=== PATIENT | female | born 1940 | race Caucasian/White ===

== ENCOUNTER → 2017-12-18 | Outpatient (CLI) | payer MEDICARE, BC ==
[2017-12-18 16:43] LABS: Basophils % (A) 0 %; Eosinophils # (A) 0.1 k/uL (0-0.7); Eosinophils % (A) 1 %; HCT 32.9 % (34.0-46.0); Lymphocytes # (A) 1.8 k/uL (1.0-4.8); Lymphocytes % (A) 20 %; MCH 29.1 pg (25.0-35.0); MCHC 33.4 g/dL (31.0-37.0); MCV 87.2 fL (80.0-100.0); Mean Platelet Volume 7.2; Monocytes # (A) 0.4 k/uL (0-1.0); Monocytes % (A) 4 %; Neutrophils # (A) 6.6 k/uL (1.3-7.7); Neutrophils % (A) 74 %; Platelet Count 453 k/uL (150-450); RBC 3.78 m/uL (3.80-5.40); RDW 14.4 % (11.5-15.5)
[2017-12-18 16:45] LABS: Appearance,Urine Clear (Clear); Bilirubin,Urine Negative (Negative); Blood,Urine Negative (Negative); Color,Urine Yellow; Glucose,Urine (UA) Negative (Negative); Hyaline Casts,Urine 5 /lpf (0-2); Ketones,Urine Negative (Negative); Leukocyte Esterase,Urine Trace (Negative); Mucus,Urine Rare /hpf; Nitrite,Urine Negative (Negative); PH, Urine 6.5 (5.0-8.0); Protein,Urine Trace (Negative); RBC,Urine 1 /hpf (0-5); Specific Gravity,Urine 1.019 (1.001-1.035); Squamous Epithelial Cell,Urine <1 /hpf (0-4); WBC,Urine 1 /hpf (0-5)
[2017-12-18 17:38] LABS: Albumin 3.9 g/dL (3.5-5.0); Calcium 9.7 mg/dL (8.4-10.2); Potassium 3.6 mmol/L (3.5-5.1); Total Bilirubin 0.4 mg/dL (0.2-1.3); Total Protein 7.3 g/dL (6.3-8.2)
[2017-12-18 17:52] LABS: T4, Free (Free Thyroxine) 1.17 ng/dL (0.78-2.19)
[2017-12-18 20:08] LABS: Erythrocyte Sedimentation Rate 63 mm/hr (0-20)
[2017-12-19 01:58] LABS: Protein, Total 7.1 g/dL (6.2-8.2)
[2017-12-19 02:08] LABS: Vitamin D 25 Hydroxy 20.7 ng/mL (30.0-100.0)
[2017-12-19 14:05] LABS: Albumin 3.94 g/dL (3.80-4.90); Gamma Globulin 1.08 g/dL (0.70-1.50)
== END | disposition home or self-care (01) ==
LOC: LABWHC1 15:42
PROVIDERS: ATTEND Internal Medicine
DX: R25.1 Tremor, unspecified (principal); R53.1 Weakness; R27.0 Ataxia, unspecified
CPT/HCPCS: 36415; 80053; 81001; 82306; 82607; 84165; 84439; 84443; 85025; 85652; 87086

== ENCOUNTER 2017-12-28 13:25 | Day surgery (SDC) | payer MEDICARE, BC ==
[2017-12-26 15:53] VITALS: BMI 23.1
[~2017-12-28 13:25] MED LIST: LACTATED RINGERS 1,000 ML IV SCH; LIDOCAINE 1% 20 ML VIAL (10MG/ML) FOR IV START INTRADERMA PRN
[2017-12-28 13:59] VITALS: TEMP 98.4
[2017-12-28] MEDS ORDERED: PROPOFOL 10 MG/ML 20 ML VIAL IV ONE (14:50)
[2017-12-28 15:29] VITALS: PULSE 98; RESP 14
--- NOTE | 2017-12-28 15:30 | P.PCN ---
Date of Procedure: 12/28/17 Procedure(s) Performed: Procedures: 1. Esophagogastroduodenoscopy and biopsy. 2. Total colonoscopy. Preoperative diagnosis: Iron deficiency anemia and blood in the stools. Postoperative diagnosis: 1. Small sliding hiatal hernia with no obvious esophagitis or complicated reflux disease. 2. Mild gastritis. 3. Multiple biopsies obtained from the duodenum, antrum, cardia and esophagus. 4. Sigmoid diverticulosis with no evidence of acute diverticulitis, strictures, polyps or cancer. 5. No evidence of bleeding noted on these exam. Preparation: HalfLytely prep. Sedation: Was provided by anesthesia. Brief clinical history: The patient is a 77-year-old female who was found to have symptomatic iron deficiency anemia and there was blood in her stools. The patient had prior upper endoscopy and colonoscopy 6-7 years ago. This evaluation is planned to assess for a GI source of bleeding. Procedure: With the patient on her left lateral decubitus position and after informed consent and adequate sedation, I passed the Olympus-GIF 160 video upper endoscope through the cricopharyngeus down the esophagus. GE junction was around 40 cm from the incisors and there was a small sliding hiatal hernia but no obvious esophagitis or complicated reflux disease. The endoscope was then passed into the stomach which was insufflated with air and inspected in detail including the retroflex view in the cardia. There was diffuse mottling and erythema without ulcers or erosions. Pyloric channel, duodenal bulb, post bulbar area and descending duodenum appeared within normal limits. I obtained biopsies from the duodenum, antrum, cardia and esophagus then the endoscope was withdrawn and I proceeded with the colonoscopy. Perianal area did not show any fissures or fistulas. There were no masses felt on digital rectal examination. The Olympus CFQ 160L video colonoscope was then inserted in the rectum in the usual fashion and advanced to the cecum. There were several diverticular orifices seen scattered in the sigmoid but there was no evidence of acute diverticulitis or strictures. No polyps or tumors were seen or any other pathology. I retroflexed the endoscope in the rectum before the endoscope was withdrawn. The patient tolerated the procedure well. Plan: The patient was reassured. Will await biopsy results. Consideration can be given for a capsule endoscopy if she continues to manifest iron deficiency anemia with evidence of GI source of bleeding. I will be happy to see in the office if the symptoms persist.
[2017-12-28 15:55] VITALS: BP 151/78
== END 2017-12-28 16:32 | disposition home or self-care (01) ==
LOC: ORWHC2ENDO 13:25
DX: K29.50 Unspecified chronic gastritis without bleeding (principal); D50.9 Iron deficiency anemia, unspecified; K57.30 Diverticulosis of large intestine without perforation or abscess without bleeding; K21.0 Gastro-esophageal reflux disease with esophagitis; K44.9 Diaphragmatic hernia without obstruction or gangrene; J44.9 Chronic obstructive pulmonary disease, unspecified; I10 Essential (primary) hypertension; Z88.5 Allergy status to narcotic agent; Z88.2 Allergy status to sulfonamides; E78.5 Hyperlipidemia, unspecified; Z87.891 Personal history of nicotine dependence; Z99.81 Dependence on supplemental oxygen; Z79.82 Long term (current) use of aspirin; Z79.899 Other long term (current) drug therapy; Z90.49 Acquired absence of other specified parts of digestive tract; Z90.710 Acquired absence of both cervix and uterus
CPT/HCPCS: 88305; 45378; 43239; J2704

== ENCOUNTER → 2018-01-26 | Outpatient (CLI) | payer MEDICARE, BC ==
--- NOTE | 2018-01-28 10:45 | MR ---
EXAMINATION TYPE: MR lumbar spine wo con DATE OF EXAM: 01/26/2018 COMPARISON: NONE HISTORY: TECHNIQUE: Multiplanar, multisequence images of the lumbar spine were acquired. FINDINGS: On T1 and T2 axial nonfat sat image 30 along the margin of the spleen there is a T1 slightl y heterogenous lesion versus lobulation of the spleen centrally for which further evaluation with ult rasound or CT abdomen are recommended. There is mild pancreatic parenchymal atrophy. Abdominal aorta is within normal limits of size with focal infrarenal ectasia at the level of L3. There is grade 1 retrolisthesis of L5 on S1, likely degenerative in nature. Remainder the lumbar vert ebral bodies maintain normal vertebral body heights and alignment. Bone marrow signal is unremarkable other than degenerative endplate changes. Right perineural cyst is incidentally noted of S2. L1-L2: There is a small left paracentral disc herniation superimposed upon a broad-based disc bulge w ithout resultant significant spinal canal stenosis nor neural foraminal narrowing. L2-L3: There is a broad-based disc bulge and mild facet arthropathy with ligamentum flavum buckling r esulting in minimal bilateral neural foraminal narrowing. No spinal canal stenosis. L3-L4: There is a broad-based disc bulge, facet arthropathy, and marked ligamentum flavum buckling re sulting in mild bilateral neural foraminal narrowing and mild spinal canal stenosis. L4-L5: There is a broad-based disc bulge, facet arthropathy and ligamentum flavum buckling that narro w the spinal canal and both anterior posterior and transverse dimensions mildly. Mild bilateral neura l foraminal narrowing is also seen. L5-S1: There is a broad-based disc bulge and facet arthropathy with ligamentum flavum buckling result ing in mild to moderate left neural foraminal narrowing and mild right neural foraminal narrowing. No significant spinal canal stenosis. IMPRESSION: 1. Small left paracentral disc herniation at L1-L2 without spinal canal stenosis or neural foraminal narrowing. 2. Lobulated left upper quadrant lesion adjacent to the splenic could represent a splenic lobulation or mass. Further evaluation with ultrasound or CT abdomen are recommended. 3. Moderate multilevel degenerative disc disease of the lumbar spine resulting in mild spinal canal s tenosis at L3-L4 and L4-L5. Variable degrees of neural foraminal narrowing are described above. 4. Minimal retrolisthesis of L5 on S1, likely degenerative in nature.
== END | disposition home or self-care (01) ==
LOC: RADMRIMAIN 18:14
PROVIDERS: ATTEND Psychiatry & Neurology Neurology
DX: M48.061 Spinal stenosis, lumbar region without neurogenic claudication (principal); M99.73 Connective tissue and disc stenosis of intervertebral foramina of lumbar region; M51.06 Intervertebral disc disorders with myelopathy, lumbar region; M43.17 Spondylolisthesis, lumbosacral region
CPT/HCPCS: 72148

== ENCOUNTER → 2018-02-09 | Outpatient (CLI) | payer MEDICARE, BC ==
--- NOTE | 2018-02-09 09:39 | US ---
EXAMINATION TYPE: US abdomen complete DATE OF EXAM: 02/09/2018 COMPARISON: MRI 2018 CLINICAL HISTORY: R93.7 Lobulated LUQ lesion. Back pain x 3 weeks, LUQ lesion seen on recent MRI EXAM MEASUREMENTS: Liver Length: 13.7 cm Gallbladder Wall: surgically absent CBD: 1.0 cm Spleen: 9.0 cm Right Kidney: 9.0 x 3.9 x 4.2 cm Left Kidney: 9.1 x 4.1 x 4.7 cm Pancreas: visualized portions appear hyperechoic Liver: mildly heterogeneous Gallbladder: surgically absent Evidence for sonographic Issa's sign: no CBD: Postsurgically dilated at 1.0cm Spleen: Isoechoic lobulation centrally, correlates to area seen on recent MRI Right Kidney: fullness of renal pelvis Left Kidney: 1.6 x 1.5 x 1.4cm hypoechoic area mid pole, 0.3cm echogenic focus superior pole Upper IVC: wnl Abd Aorta: focal area of saccular ectasia mid aorta measuring 2.2 cm in anterior posterior dimension and spanning 3.2 cm in length. IMPRESSION: 1. Isoechoic lobulation of the spleen centrally correlating with the recent finding seen on MRI. No s uspicious mass. 2. Redemonstration of focal saccular ectasia within the mid abdominal aorta, not meeting size criteri a for aneurysm (2.2 cm). 3. 1.6 cm left renal lesion with no correlate on the prior MRI. Therefore this may represent a promin ent column of Samy. Follow-up ultrasound is recommended in 6 months.
== END | disposition home or self-care (01) ==
LOC: RADUSWWP 07:25
PROVIDERS: ATTEND Psychiatry & Neurology Neurology
DX: N28.9 Disorder of kidney and ureter, unspecified (principal); I77.811 Abdominal aortic ectasia; D73.89 Other diseases of spleen
CPT/HCPCS: 76700

== ENCOUNTER → 2018-02-21 | Outpatient (CLI) | payer MEDICARE, BC ==
--- NOTE | 2018-02-21 08:55 | MR ---
MRI CERVICAL SPINE: CLINICAL HISTORY: Myelopathy, imbalance, CORD compression, hyperreflexia, and leg weakness all per or murphy. Headache with dizziness for 5 months per patient TECHNIQUE: Multiplanar, multisequence imaging of the cervical spine is performed without IV contrast. Demyelinating disease protocol with additional PD sagittal sequence COMPARISON: None. FINDINGS: Sagittal images of the cervical spine show the craniocervical junction to appear within nor mal limits. The cervical and upper thoracic spinal cord is normal in course, caliber, and signal. V ertebral alignment is anatomic. The vertebral body heights are normal. There is moderate multilevel disc space narrowing with mild to moderate multilevel spurring C3-C4 through C6-C7 levels in the cerv ical spine. There is spurring C7-T1 level. Multilevel posterior disc herniations at spur disc complex es are effacing anterior thecal sac on sagittal images with sparing of C2-C3 level. The bone marrow signal intensity is within normal limits. Axial images show the C2-C3 level to appear within normal limits. Axial images at the C3-C4 level show broad-based right paracentral disc protrusion effacing anterolat eral thecal sac with marginal spurring causing fairly advanced right-sided neural foraminal narrowing on axial image 38. Left-sided neural foramen is patent. Axial images at C4-C5 level show broad-based right paracentral/foraminal spur disc complex effacing a nterolateral thecal sac and causing moderate to advanced right-sided neural foraminal narrowing. Ther e is mild to moderate left-sided neural foraminal narrowing due to smaller spur disc complex. Axial images at C5-C6 level show broad-based posterior spur disc complex effacing anterior thecal sac and causing moderate to advanced right greater than left bilateral neural foraminal narrowing. Axial images at C6-C7 level show broad-based right paracentral disc protrusion effacing anterior thec al sac and causing mild bilateral neural foraminal narrowing. Axial images at C7-T1 level show broad-based left paracentral disc protrusion effacing anterolateral thecal sac and causing mild left-sided neural foraminal narrowing. Right-sided neural foramen is shields nt. IMPRESSION: Multilevel degenerative changes in the cervical spine as detailed above.
== END | disposition home or self-care (01) ==
LOC: RADMRIMAIN 08:05
PROVIDERS: ATTEND Psychiatry & Neurology Neurology
DX: M47.12 Other spondylosis with myelopathy, cervical region (principal)
CPT/HCPCS: 72141

== ENCOUNTER → 2018-03-01 | Outpatient (CLI) | payer MEDICARE, BC | END | disposition home or self-care (01) | LOC: RADECHMAIN 11:38 | PROVIDERS: ATTEND Psychiatry & Neurology Neurology | DX: R00.1 Bradycardia, unspecified (principal); R00.0 Tachycardia, unspecified; R42 Dizziness and giddiness | CPT/HCPCS: 93225; 93226 ==

== ENCOUNTER → 2018-03-19 | Outpatient (CLI) | payer MEDICARE, BC ==
--- NOTE | 2018-03-20 10:02 | MM ---
Reason for exam: screening (asymptomatic). Last mammogram was performed 14 years and 1 month ago. History: Patient is postmenopausal. Family history of breast cancer in mother at age 85. Physical Findings: A clinical breast exam by your physician is recommended on an annual basis and results should be correlated with mammographic findings. MG 3D Screening Mammo W/Cad Bilateral CC and MLO view(s) were taken. No prior studies available for comparison. The breast tissue is heterogeneously dense. This may lower the sensitivity of mammography. Finding: There are typically benign vascular, round calcifications in both breasts. There is no discrete abnormality. ASSESSMENT: Benign, BI-RAD 2 RECOMMENDATION: Routine screening mammogram of both breasts in 1 year.
== END | disposition home or self-care (01) ==
LOC: RADMAMWWP 16:25
PROVIDERS: ATTEND Internal Medicine
DX: Z12.31 Encounter for screening mammogram for malignant neoplasm of breast (principal)
CPT/HCPCS: 77063; 77067

== ENCOUNTER → 2018-05-09 | Outpatient (CLI) | payer MEDICARE, BC ==
--- NOTE | 2018-05-09 17:53 | XR ---
EXAMINATION TYPE: XR thoracic spine complete DATE OF EXAM: 05/09/2018 COMPARISON: None HISTORY: Thoracic pain since fall TECHNIQUE: Thoracic spine is examined in 3 views. FINDINGS: There are 12 thoracic-type tubal bodies. Pedicles are intact. Degenerative disc changes are noted, greatest at T5-6 and T7-8. Vertebral body alignment appears normal on the sagittal plane. The re is a subtle scoliosis within the mid thoracic spine in the frontal projection. IMPRESSION: 1. Degenerative disc changes greatest in the mid thoracic spine. Mild scoliosis is present.
== END | disposition home or self-care (01) ==
LOC: RADXRMAIN 14:35
PROVIDERS: ATTEND Psychiatry & Neurology Neurology
DX: M47.814 Spondylosis without myelopathy or radiculopathy, thoracic region (principal); M41.9 Scoliosis, unspecified
CPT/HCPCS: 72072

== ENCOUNTER 2020-01-20 10:03 | Inpatient (IN) | payer MEDICARE, BC ==
[2020-01-20] MEDS ORDERED: ACETAMINOPHEN TAB 500 MG TAB PO STA (10:23)
[2020-01-20] MEDS ORDERED: ALBUTEROL HFA INHALER INHALATION STA (10:25)
--- NOTE | 2020-01-20 10:35 | ED ---
General Adult HPI - General Chief complaint: Shortness of Breath Stated complaint: SOB Time Seen by Provider: 01/20/20 10:13 Source: patient, RN notes reviewed Mode of arrival: ambulatory Limitations: no limitations - History of Present Illness Initial comments: 79-year-old female with a past medical history of COPD on 2 L at night, hypertension, GERD presents to the emergency department for a chief complaint of cough. Patient has cough for the past 2 weeks. Patient has a been on 2 different antibiotics for this. Patient states cough is worsening. States it is productive with green sputum. States that she is short of breath and her shortness of breath is worsening. She was seen by her doctor today and they sent her to the emergency department due to concerns for Covid. Patient has no other complaints at this time including chest pain, abdominal pain, nausea or vomiting, headache, or visual changes. - Related Data Home Medications Medication Instructions Recorded Confirmed Albuterol Sulfate [Proair Hfa] 1 - 2 puff INHALATION Q6HR PRN 12/26/17 12/26/17 Aspirin 81 mg PO DAILY 12/26/17 12/26/17 Atorvastatin [Lipitor] 10 mg PO DAILY 12/26/17 12/26/17 Budesonide/Formoterol Fumarate 2 puff INHALATION BID 12/26/17 12/26/17 [Symbicort 160-4.5 Mcg Inhaler] Chlorthalidone 25 mg PO Q2D 12/26/17 12/26/17 Ergocalciferol [Vitamin D2] 50,000 unit PO TH 12/26/17 12/26/17 Ipratropium-Albuterol Nebulize 3 ml INHALATION BID 12/26/17 12/26/17 [Duoneb 0.5 mg-3 mg/3 ml Soln] Losartan Potassium 50 mg PO QAM 12/26/17 12/26/17 Allergies Allergy/AdvReac Type Severity Reaction Status Date / Time codeine AdvReac Nausea & Verified 01/20/20 10:07 Vomiting Sulfa (Sulfonamide AdvReac Nausea & Verified 01/20/20 10:07 Antibiotics) Vomiting Review of Systems ROS Statement: Those systems with pertinent positive or pertinent negative responses have been documented in the HPI. ROS Other: All systems not noted in ROS Statement are negative. Past Medical History Past Medical History: COPD, GERD/Reflux, Hypertension, Skin Disorder Additional Past Medical History / Comment(s): prednisone-November 2017,sob and dizziness,generalized weakness,recent falls,uses O2 @ 2 L NC,skin rash, within last 6 mos 2 hospitaliztions in [place] for respiratory/elevated b/p admissions, hx bronchitis,elevated blood sugar History of Any Multi-Drug Resistant Organisms: None Reported Past Surgical History: Appendectomy, Cholecystectomy, Hysterectomy Additional Past Surgical History / Comment(s): hemorrhoidectomy Past Anesthesia/Blood Transfusion Reactions: No Reported Reaction, Motion Sickness Additional Past Anesthesia/Blood Transfusion Reaction / Comment(s): took 3 days to ambulate after spinal given Past Psychological History: No Psychological Hx Reported Smoking Status: Former smoker Past Alcohol Use History: Occasional Past Drug Use History: None Reported - Past Family History Mother Family Medical History: No Reported History Father Family Medical History: Cancer Additional Family Medical History / Comment(s): lung General Exam Limitations: no limitations General appearance: alert, in no apparent distress Head exam: Present: atraumatic, normocephalic, normal inspection Eye exam: Present: normal appearance, PERRL, EOMI. Absent: scleral icterus, conjunctival injection, periorbital swelling ENT exam: Present: normal exam, mucous membranes moist Neck exam: Present: normal inspection, full ROM. Absent: tenderness, meningismus, lymphadenopathy Respiratory exam: Present: wheezes, accessory muscle use, decreased breath sounds, prolonged expiratory. Absent: respiratory distress, rales, rhonchi, stridor Cardiovascular Exam: Present: regular rate, normal rhythm, normal heart sounds. Absent: systolic murmur, diastolic murmur, rubs, gallop, clicks GI/Abdominal exam: Present: soft, normal bowel sounds. Absent: distended, tenderness, guarding, rebound, rigid Neurological exam: Present: alert Psychiatric exam: Present: normal affect, normal mood Course Vital Signs 01/20/20 01/20/20 10:07 11:10 Temperature 99.3 F 101.9 F H Pulse Rate 124 H 108 H Respiratory 24 20 Rate Blood Pressure 125/98 150/85 O2 Sat by Pulse 94 L 96 Oximetry Medical Decision Making - Medical Decision Making Vitals are stable. However patient is febrile 101.9. Heart rate is improving with Tylenol. Patient is on 2 L nasal cannula and is satting at 96%. She does require 2 L at night given her history of COPD. CBC CMP unremarkable. There is mild hyponatremia of 132, patient given normal saline for gentle rehydration. CRP is elevated 168. D-dimer is elevated 1.30 which was ordered for Covid prognostic testing however CT and she will be ordered to rule out PE. Lungs are very diminished and wheezy. X-ray did show a mild patchy density right lower lobe that may reflect a developing pneumonia. This is clinically correlated given patient's fever and productive cough. Patient will be admitted for COPD exacerbation, pneumonia, rule out Covid. She was given a dose of antibiotics here in the emergency room. Started on steroids. Patient will be kept on albuterol inhaler until Covid testing results. Dr. Vidal spoke with Dr. Nowak about this patient who accepts the admission. CT chest angio for PE is currently pending. - Lab Data Result diagrams: 01/20/20 10:30 01/20/20 10:30 Lab Results 01/20/20 01/20/20 01/20/20 Range/Units 10:30 10:30 10:30 WBC 9.6 (3.8-10.6) k/uL RBC 4.41 (3.80-5.40) m/uL Hgb 13.3 (11.4-16.0) gm/dL Hct 39.0 (34.0-46.0) % MCV 88.4 (80.0-100.0) fL MCH 30.3 (25.0-35.0) pg MCHC 34.2 (31.0-37.0) g/dL RDW 13.3 (11.5-15.5) % Plt Count 312 (150-450) k/uL Neutrophils % 76 % Lymphocytes % 15 % Monocytes % 4 % Eosinophils % 4 % Basophils % 0 % Neutrophils # 7.3 (1.3-7.7) k/uL Lymphocytes # 1.4 (1.0-4.8) k/uL Monocytes # 0.4 (0-1.0) k/uL Eosinophils # 0.4 (0-0.7) k/uL Basophils # 0.0 (0-0.2) k/uL PT 9.4 (9.0-12.0) sec INR 0.9 (<1.2) APTT 20.2 L (22.0-30.0) sec D-Dimer 1.30 H (<0.60) mg/L FEU Sodium 132 L (137-145) mmol/L Potassium 4.7 (3.5-5.1) mmol/L Chloride 102 (98-107) mmol/L Carbon Dioxide 19 L (22-30) mmol/L Anion Gap 11 mmol/L BUN 12 (7-17) mg/dL Creatinine 0.98 (0.52-1.04) mg/dL Est GFR (CKD-EPI)AfAm 64 (>60 ml/min/1.73 sqM) Est GFR (CKD-EPI)NonAf 55 (>60 ml/min/1.73 sqM) Glucose 93 (74-99) mg/dL Plasma Lactic Acid Donnie (0.7-2.0) mmol/L Calcium 9.2 (8.4-10.2) mg/dL Magnesium 2.2 (1.6-2.3) mg/dL Total Bilirubin 0.6 (0.2-1.3) mg/dL AST 29 (14-36) U/L ALT 18 (4-34) U/L Alkaline Phosphatase 124 (38-126) U/L Lactate Dehydrogenase 530 (313-618) U/L C-Reactive Protein 168.0 H (<10.0) mg/L Total Protein 7.4 (6.3-8.2) g/dL Albumin 3.9 (3.5-5.0) g/dL 01/20/20 Range/Units 10:30 WBC (3.8-10.6) k/uL RBC (3.80-5.40) m/uL Hgb (11.4-16.0) gm/dL Hct (34.0-46.0) % MCV (80.0-100.0) fL MCH (25.0-35.0) pg MCHC (31.0-37.0) g/dL RDW (11.5-15.5) % Plt Count (150-450) k/uL Neutrophils % % Lymphocytes % % Monocytes % % Eosinophils % % Basophils % % Neutrophils # (1.3-7.7) k/uL Lymphocytes # (1.0-4.8) k/uL Monocytes # (0-1.0) k/uL Eosinophils # (0-0.7) k/uL Basophils # (0-0.2) k/uL PT (9.0-12.0) sec INR (<1.2) APTT (22.0-30.0) sec D-Dimer (<0.60) mg/L FEU Sodium (137-145) mmol/L Potassium (3.5-5.1) mmol/L Chloride (98-107) mmol/L Carbon Dioxide (22-30) mmol/L Anion Gap mmol/L BUN (7-17) mg/dL Creatinine (0.52-1.04) mg/dL Est GFR (CKD-EPI)AfAm (>60 ml/min/1.73 sqM) Est GFR (CKD-EPI)NonAf (>60 ml/min/1.73 sqM) Glucose (74-99) mg/dL Plasma Lactic Acid Donnie 1.7 (0.7-2.0) mmol/L Calcium (8.4-10.2) mg/dL Magnesium (1.6-2.3) mg/dL Total Bilirubin (0.2-1.3) mg/dL AST (14-36) U/L ALT (4-34) U/L Alkaline Phosphatase (38-126) U/L Lactate Dehydrogenase (313-618) U/L C-Reactive Protein (<10.0) mg/L Total Protein (6.3-8.2) g/dL Albumin (3.5-5.0) g/dL Disposition Clinical Impression: COPD exacerbation, Cough, Fever Disposition: ADMITTED IP TO THIS HOSP Condition: Fair Referrals: Ever Roach MD [Primary Care Provider] - 1-2 days Time of Disposition: 12:19
[2020-01-20 10:57] LABS: Basophils % (A) 0 %; Eosinophils # (A) 0.4 k/uL (0-0.7); Eosinophils % (A) 4 %; HGB 13.3 gm/dL (11.4-16.0); Lymphocytes # (A) 1.4 k/uL (1.0-4.8); Lymphocytes % (A) 15 %; MCH 30.3 pg (25.0-35.0); MCHC 34.2 g/dL (31.0-37.0); MCV 88.4 fL (80.0-100.0); Mean Platelet Volume 7.2; Monocytes # (A) 0.4 k/uL (0-1.0); Monocytes % (A) 4 %; Neutrophils # (A) 7.3 k/uL (1.3-7.7); Neutrophils % (A) 76 %; Platelet Count 312 k/uL (150-450); RBC 4.41 m/uL (3.80-5.40); RDW 13.3 % (11.5-15.5); WBC 9.6 k/uL (3.8-10.6)
[2020-01-20 11:04] LABS: Albumin 3.9 g/dL (3.5-5.0); Calcium 9.2 mg/dL (8.4-10.2); Magnesium 2.2 mg/dL (1.6-2.3); Potassium 4.7 mmol/L (3.5-5.1); Total Bilirubin 0.6 mg/dL (0.2-1.3); Total Protein 7.4 g/dL (6.3-8.2)
[2020-01-20 11:14] LABS: INR 0.9 (<1.2); Partial Thromboplastin Time 20.2 sec (22.0-30.0); Prothrombin Time 9.4 sec (9.0-12.0)
--- NOTE | 2020-01-20 11:14 | XR ---
EXAMINATION TYPE: XR chest 1V portable DATE OF EXAM: 01/20/2020 HISTORY: Shortness of breath. COMPARISON: June 11, 2019 TECHNIQUE: Single view of the chest is submitted. FINDINGS: Demonstrated are scattered senescent parenchymal change. Mild patchy density right lower lobe may reflect developing pneumonia. Correlate clinically and progr ess studies are recommended. The heart is stable. Hilar and mediastinal structures are within normal limits. Degenerative changes are seen of the dorsal spine. IMPRESSION: 1. Mild patchy density right lower lobe may reflect developing pneumonia. Correlate clinically and p rogress studies are recommended.
[2020-01-20 11:22] LABS: D-Dimer 1.3 mg/L FEU (<0.60)
[2020-01-20] MEDS ORDERED: AZITHROMYCIN 500 MG in SODIUM CHLORIDE 0.9% 250 ML IVPB STA (11:44)
[2020-01-20] MEDS ORDERED: cefTRIAXone IN SWFI 1,000 MG/10 ML SYRINGE IVP STA (11:44)
--- NOTE | 2020-01-20 12:42 | CT ---
EXAMINATION TYPE: CT chest angio for PE DATE OF EXAM: 01/20/2020 COMPARISON: None HISTORY: SOB, cough, fever CT DLP: 279 mGycm CONTRAST: CT chest with contrast and 3D reconstruction with MIP imaging is performed with IV Contrast, patient injected with 100 mL of Isovue 370. Contrast-enhanced CT of the chest was performed through the course of the pulmonary arteries with nina g and mediastinal window settings submitted. 3D reconstruction with MIP imaging was also performed. PULMONARY ARTERIES: The pulmonary arteries and their major tributaries are patent. I do not see agustina dence for sizable filling defect to suggest pulmonary embolic process. LUNGS: Severe paracentral emphysema. The lungs are clear and free of infiltrate. No evidence for atel ectasis. No pulmonary nodule or mass is detected. No pleural effusion. MEDIASTINUM: Thoracic aorta is of normal caliber,however, evaluation is limited given timing of the contrast bolus. If there is concern for thoracic aortic pathology consider YARY. Correlate clinicall y . The heart is not enlarged. No evidence for mediastinal mass. No mediastinal lymph nodes greater than 1cm. HILAR STRUCTURES: No evidence for mass. No hilar lymph nodes greater than 1 cm. UPPER ABDOMEN: No significant abnormality is seen. IMPRESSION: 1. No evidence for Pulmonary embolism at this time.
[2020-01-20] MEDS: ALBUTEROL HFA INHALER INHALATION SCH ×2 (15:14→18:58)
[2020-01-20] MEDS ORDERED: HYDROcodone/APAP 5-325MG 1 EACH TAB PO PRN (16:07)
[2020-01-20] MEDS ORDERED: methylPREDNISolone SOD SUCCI 125 MG/2 ML VIAL IV STA (16:09)
[2020-01-20 16:20] LABS: Ferritin 782.9 ng/mL (10.0-291.0)
[2020-01-20 16:59] LABS: Glucose,Whole Blood 141 mg/dL (75-99)
[2020-01-20] MEDS: methylPREDNISolone SOD SUCCI 125 MG/2 ML VIAL IV SCH ×2 (17:08→22:59)
[2020-01-20] MEDS: INSULIN ASPART (NovoLOG) 100 UNIT/ML VIAL SQ SCH ×2 (17:22→20:21)
[2020-01-20 20:04] LABS: Glucose,Whole Blood 135 mg/dL (75-99)
[2020-01-21] MEDS: ALBUTEROL HFA INHALER INHALATION SCH ×3 (00:22→07:47)
[2020-01-21] MEDS: methylPREDNISolone SOD SUCCI 125 MG/2 ML VIAL IV SCH ×4 (05:13→23:23)
[2020-01-21 06:55] LABS: Glucose,Whole Blood 152 mg/dL (75-99)
[2020-01-21 07:32] LABS: Basophils % (A) 0 %; Eosinophils % (A) 0 %; HCT 38.1 % (34.0-46.0); HGB 12.5 gm/dL (11.4-16.0); Lymphocytes # (A) 0.7 k/uL (1.0-4.8); Lymphocytes % (A) 15 %; MCH 29.1 pg (25.0-35.0); MCHC 32.8 g/dL (31.0-37.0); MCV 88.9 fL (80.0-100.0); Mean Platelet Volume 7.8; Monocytes # (A) 0.1 k/uL (0-1.0); Monocytes % (A) 1 %; Neutrophils # (A) 3.9 k/uL (1.3-7.7); Neutrophils % (A) 83 %; Platelet Count 298 k/uL (150-450); RBC 4.29 m/uL (3.80-5.40); RDW 13.3 % (11.5-15.5); WBC 4.8 k/uL (3.8-10.6)
[2020-01-21] MEDS: HEPARIN SODIUM,PORCINE 5,000 UNIT/ML 1 ML VIAL SQ SCH ×3 (07:37→23:24)
[2020-01-21] MEDS: INSULIN ASPART (NovoLOG) 100 UNIT/ML VIAL SQ SCH ×4 (07:37→20:44)
[2020-01-21] MEDS: AZITHROMYCIN 500 MG TAB PO SCH (07:37)
[2020-01-21 07:43] LABS: Calcium 9.2 mg/dL (8.4-10.2); Potassium 4.5 mmol/L (3.5-5.1)
[2020-01-21] MEDS: SYMBICORT 160-4.5 MCG INHALER INHALATION SCH ×2 (07:47→19:15)
[2020-01-21] MEDS ORDERED: IPRATROPIUM-ALBUTEROL 3 ML NEB INHALATION PRN (11:05)
[2020-01-21] MEDS: IPRATROPIUM-ALBUTEROL 3 ML NEB INHALATION SCH ×3 (11:16→19:15)
[2020-01-21 12:00] LABS: Glucose,Whole Blood 141 mg/dL (75-99)
--- NOTE | 2020-01-21 13:26 | P.CNPUL ---
History of Present Illness Consult date: 01/21/20 Requesting physician: Tolu Nowak Reason for consult: dyspnea, COPD Chief complaint: Shortness of breath, cough, congestion History of present illness: This is a very pleasant 79-year-old female patient who follows with Dr. Roach as her primary care provider. She has a history of hypertension, hyperlipidemia, chronic obstructive pulmonary disease, oxygen dependent mainly at night on 2 L/m per nasal cannula. She is a prior history of chronic tobacco dependence. Recently she had been having issues with her COPD exacerbations and was treated in our office on 2 separate occasions with steroids and antibiotics without much improvement. She presented here to the emergency room yesterday with ongoing symptoms. CT angiogram revealed no evidence of pulmonary embolism. Lungs showed severe paracentral emphysema. Lungs were clear and free of infiltrates. No evidence of atelectasis. No pulmonary nodules or masses. No pleural effusions. She is seen today in consultation on the regular medical floor. She is awake and alert in no acute distress. She did present with a T- max of 101.9. Currently afebrile. Blood culture reveals no growth. Sputum culture pending. White count 4.8. Hemoglobin 12.5. Sodium 134. Potassium 4.5. Bicarb 19. Creatinine 0.91. Fonseca virus not detected. She been initiated on Symbicort, albuterol, IV Solu-Medrol. Empiric antibiotics in the form of ceftriaxone and azithromycin. Review of Systems REVIEW OF SYSTEMS: CONSTITUTIONAL: Denies any recent significant weight loss or weight gain. EYES: Denies change in vision. EARS, NOSE, MOUTH, THROAT: Denies headaches, denies sore throat. CARDIOVASCULAR: Denies chest pain, palpitations or syncopal episodes. RESPIRATORY: As needed for shortness of breath, cough, congestion no hemoptysis. GASTROINTESTINAL: Denies change in appetite, denies abdominal pain GENITOURINARY: Denies hematuria, denies infections. MUSKULOSKELETAL: Denies pain, denies swelling. INTEGUMENTARY: Denies rash, denies eczema. NEUROLOGICAL: Denies recent memory loss, no recent seizure activity. PSYCHIATRIC: Denies anxiety, denies depression. HEMATOLOGIC/LYMPHATIC: Denies anemia, denies enlarged lymph nodes. Past Medical History Past Medical History: COPD, GERD/Reflux, Hypertension Additional Past Medical History / Comment(s): prednisone-November 2017,sob and dizziness,generalized weakness,recent falls,uses O2 @ 2 L NC,skin rash, within last 6 mos 2 hospitaliztions in [place] for respiratory/elevated b/p admissions, hx bronchitis,elevated blood sugar History of Any Multi-Drug Resistant Organisms: None Reported Past Surgical History: Appendectomy, Cholecystectomy, Hysterectomy Additional Past Surgical History / Comment(s): hemorrhoidectomy Past Anesthesia/Blood Transfusion Reactions: No Reported Reaction, Motion Sick ness Additional Past Anesthesia/Blood Transfusion Reaction / Comment(s): took 3 days to ambulate after spinal given Smoking Status: Former smoker - Past Family History Mother Family Medical History: No Reported History Father Family Medical History: Cancer Additional Family Medical History / Comment(s): lung Medications and Allergies Home Medications Medication Instructions Recorded Confirmed Type Albuterol Sulfate [Proair Hfa] 2 puff INHALATION RT-QID PRN 12/26/17 01/20/20 History Budesonide/Formoterol Fumarate 2 puff INHALATION RT-QID 12/26/17 01/20/20 History [Symbicort 160-4.5 Mcg Inhaler] Ipratropium-Albuterol Nebulize 3 ml INHALATION RT-QID 12/26/17 01/20/20 History [Duoneb 0.5 mg-3 mg/3 ml Soln] Cholecalciferol (Vitamin D3) 50 mcg PO DAILY 01/20/20 01/20/20 History [Vitamin D3] Allergies Allergy/AdvReac Type Severity Reaction Status Date / Time codeine AdvReac Nausea & Verified 01/20/20 13:23 Vomiting Sulfa (Sulfonamide AdvReac Nausea & Verified 01/20/20 13:23 Antibiotics) Vomiting Physical Exam Vitals: Vital Signs Temp Pulse Pulse Resp BP BP Pulse Ox 01/21/20 11:34 96 01/21/20 11:18 102 H 01/21/20 07:37 18 01/21/20 07:00 97.7 F 99 18 145/79 95 01/21/20 00:47 97.8 F 89 18 142/79 91 L 01/20/20 19:25 98.4 F 72 18 157/80 98 01/20/20 16:04 98.3 F 92 18 152/82 97 01/20/20 16:00 97.4 F L 99 19 154/68 93 L 01/20/20 14:00 104 H 20 141/77 96 Intake and Output 01/20/20 01/21/20 01/21/20 22:59 06:59 14:59 Output Total 0 Balance 0 Output: Urine 0 Other: Voiding Method Bedside Commode # Voids 2 2 Weight 68.946 kg GENERAL EXAM: Alert, active, pleasant 79-year-old female patient, on 3 L nasal cannula, comfortable in no apparent distress. HEAD: Normocephalic. EYES: Normal reaction of pupils, equal size. NOSE: Clear with pink turbinates. THROAT: No erythema or exudates. NECK: No masses, no JVD. CHEST: No chest wall deformity. LUNGS: Equal air entry with no crackles, wheeze, rhonchi or dullness. Diminished. CVS: S1 and S2 normal with no audible murmur, regular rhythm. ABDOMEN: No hepatosplenomegaly, normal bowel sounds, no guarding or rigidity. SPINE: No scoliosis or deformity SKIN: No rashes CENTRAL NERVOUS SYSTEM: No focal deficits, tone is normal in all 4 extremities. EXTREMITIES: There is no peripheral edema. No clubbing, no cyanosis. Peripheral pulses are intact. Results - Laboratory Findings CBC and BMP: 01/21/20 06:38 01/21/20 06:38 PT/INR, D-dimer PT 9.4 sec (9.0-12.0) 01/20/20 10:30 INR 0.9 (<1.2) 01/20/20 10:30 D-Dimer 1.30 mg/L FEU (<0.60) H 01/20/20 10:30 Abnormal lab findings: Abnormal Labs 01/20/20 01/20/20 01/20/20 10:30 10:30 16:57 Lymphocytes # APTT 20.2 L D-Dimer 1.30 H Sodium 132 L Carbon Dioxide 19 L BUN Glucose POC Glucose (mg/dL) 141 H Ferritin 782.9 H C-Reactive Protein 168.0 H 01/20/20 01/21/20 01/21/20 20:03 06:38 06:38 Lymphocytes # 0.7 L APTT D-Dimer Sodium 134 L Carbon Dioxide 19 L BUN 18 H Glucose 148 H POC Glucose (mg/dL) 135 H Ferritin C-Reactive Protein 01/21/20 01/21/20 06:53 11:59 Lymphocytes # APTT D-Dimer Sodium Carbon Dioxide BUN Glucose POC Glucose (mg/dL) 152 H 141 H Ferritin C-Reactive Protein - Diagnostic Findings Chest x-ray: image reviewed CT scan - chest: image reviewed Assessment and Plan Assessment: 1 Acute exacerbation of chronic obstructive pulmonary disease, complicated by purulent tracheobronchitis. Failed outpatient treatment. No evidence of pneumonia. 2 Acute on chronic hypoxic respiratory failure secondary to above. 3 History of chronic tobacco dependence. 4 Hyperlipidemia 5 Hypertension 6 Gastroesophageal reflux disease Plan The patient was seen and evaluated by Dr. Roach CAT scan, chest x-ray and labs reviewed No clear evidence of pneumonia Continue empiric antibiotics Continue IV Solu-Medrol Continue bronchodilators Obtain sputum sample if possible Titrate down the FiO2 as tolerated Increase her activity as tolerated We will continue to follow and make further recommendations based on her clinical status I, the cosigning physician, performed a history & physical examination of the patient. Lungs sounds are clear, diminished. Maintaining good O2 saturations in the 90s on 3 L/m per nasal cannula. I discussed the assessment and plan of care with my nurse practitioner, Violet Jauregui. I attest to the above note as dictated by her. Time with Patient: Greater than 30
[2020-01-21 17:09] LABS: Glucose,Whole Blood 145 mg/dL (75-99)
--- NOTE | 2020-01-21 20:19 | P.HPIM ---
History of Present Illness H&P Date: 01/20/20 Chief Complaint: ESSENCE Patient is a 79-year-old female with a known history of COPD on oxygen at 2 L in the night, hypertension, GERD came to ER with the complaints of cough and worsening shortness of breath for the past 2 weeks. Patient was on 2 different antibiotics as an outpatient but without much improvement. Patient cough has been worsening. Sometimes productive with green-colored sputum.. Patient was seen by her doctor today and sent to ER due to concern for COVID-19 virus infection. Otherwise patient denied any complaints of chest pain. No nausea vomiting or diarrhea. No abdominal pain. No dizziness or lightheadedness. EKG showed sinus tachycardia Chest x-ray showed mild patchy density right lower lobe may reflect developing pneumonia. CT angiogram of the chest was done due to elevated d-dimer level to 1.3 CT angiogram showed no evidence of pulmonary embolism. Severe paraseptal emphysema. Lungs are free of infiltrate. No evidence for atelectasis. No pulmonary nodule or mass is detected. No pleural effusion. Laboratory data showed WC 9.6, hemoglobin 13.3, platelets 312 Absolute lymphocyte count1.4 Sodium 132, potassium 4.7, bicarb 19 BUN 12 and creatinine 0.98 Ferritin 782.9 LDH 530, CRP 168 Pro calcitonin 0.09 not elevated Review of Systems Constitutional: Patient denies any fever or chills . No generalized weakness or weight loss. Abdomen: Patient denied nausea vomiting and diarrhea and abdominal pain. Cardiovascular: Patient denies any chest pain or short of breath no palpitations. Respiratory: Patient does have cough with greenish sputum and shortness of breath Neurologic: Patient denied any numbness or tingling. Musculoskeletal: Patient denies any complaints of joint swelling or deformity. Skin: Negative Psychiatric: Negative Endocrine: No heat or cold intolerance. No recent weight gain. Genitourinary: No dysuria or hematuria. All other 14 point ROS negative except the above Past Medical History Past Medical History: COPD, GERD/Reflux, Hypertension Additional Past Medical History / Comment(s): prednisone-November 2017,sob and dizziness,generalized weakness,recent falls,uses O2 @ 2 L NC,skin rash, within last 6 mos 2 hospitaliztions in [place] for respiratory/elevated b/p admissions, hx bronchitis,elevated blood sugar History of Any Multi-Drug Resistant Organisms: None Reported Past Surgical History: Appendectomy, Cholecystectomy, Hysterectomy Additional Past Surgical History / Comment(s): hemorrhoidectomy Past Anesthesia/Blood Transfusion Reactions: No Reported Reaction, Motion Sickness Additional Past Anesthesia/Blood Transfusion Reaction / Comment(s): took 3 days to ambulate after spinal given Smoking Status: Former smoker - Past Family History Mother Family Medical History: No Reported History Father Family Medical History: Cancer Additional Family Medical History / Comment(s): lung Medications and Allergies Home Medications Medication Instructions Recorded Confirmed Type Albuterol Sulfate [Proair Hfa] 2 puff INHALATION RT-QID PRN 12/26/17 01/20/20 History Budesonide/Formoterol Fumarate 2 puff INHALATION RT-QID 12/26/17 01/20/20 History [Symbicort 160-4.5 Mcg Inhaler] Ipratropium-Albuterol Nebulize 3 ml INHALATION RT-QID 12/26/17 01/20/20 History [Duoneb 0.5 mg-3 mg/3 ml Soln] Cholecalciferol (Vitamin D3) 50 mcg PO DAILY 01/20/20 01/20/20 History [Vitamin D3] Allergies Allergy/AdvReac Type Severity Reaction Status Date / Time codeine AdvReac Nausea & Verified 01/20/20 13:23 Vomiting Sulfa (Sulfonamide AdvReac Nausea & Verified 01/20/20 13:23 Antibiotics) Vomiting Physical Exam Vitals: Vital Signs Temp Pulse Pulse Resp BP BP Pulse Ox 01/20/20 19:25 98.4 F 72 18 157/80 98 01/20/20 16:04 98.3 F 92 18 152/82 97 01/20/20 16:00 97.4 F L 99 19 154/68 93 L 01/20/20 14:00 104 H 20 141/77 96 01/20/20 13:07 97.9 F 106 H 18 151/87 94 L 01/20/20 11:10 101.9 F H 108 H 20 150/85 96 01/20/20 10:07 99.3 F 124 H 24 125/98 94 L Intake and Output 01/20/20 01/20/20 01/20/20 06:59 14:59 22:59 Output Total 0 Balance 0 Output: Urine 0 Other: Voiding Method Bedside Commode Weight 68.946 kg 68.946 kg PHYSICAL EXAMINATION: Patient is lying in the bed comfortably, no acute distress, awake alert and oriented.. HEENT: Normocephalic. Neck is supple. Pupils reactive. Nostrils clear. Oral cavity is moist. Ears reveal no drainage. Neck reveals no JVD, carotid bruits, or thyromegaly. CHEST EXAMINATION: Trachea is central. Symmetrical expansion.Bilateral diffuse wheezing and diminished air entry.. CARDIAC: Normal S1, S2 with no gallops. No murmurs ABDOMEN: Soft. Bowel sounds normal. No organomegaly. No abdominal bruits. Extremities: reveal no edema. No clubbing or cyanosis Neurologically awake, alert, oriented x3 with well-coordinated movements. No focal deficits noted Skin: No rash or skin lesions. Psychiatric: Coperative. Nonsuicidal Musculoskeletal: No joint swelling or deformity. Normal range of motion. Results CBC & Chem 7: 01/21/20 06:38 01/21/20 06:38 Labs: Abnormal Lab Results - Last 24 Hours (Table) 01/20/20 01/20/20 01/20/20 Range/Units 10:30 10:30 16:57 APTT 20.2 L (22.0-30.0) sec D-Dimer 1.30 H (<0.60) mg/L FEU Sodium 132 L (137-145) mmol/L Carbon Dioxide 19 L (22-30) mmol/L POC Glucose (mg/dL) 141 H (75-99) mg/dL Ferritin 782.9 H (10.0-291.0) ng/mL C-Reactive Protein 168.0 H (<10.0) mg/L 01/20/20 Range/Units 20:03 APTT (22.0-30.0) sec D-Dimer (<0.60) mg/L FEU Sodium (137-145) mmol/L Carbon Dioxide (22-30) mmol/L POC Glucose (mg/dL) 135 H (75-99) mg/dL Ferritin (10.0-291.0) ng/mL C-Reactive Protein (<10.0) mg/L Thrombosis Risk Factor Assmnt - DVT/VTE Prophylaxis DVT/VTE Prophylaxis: Pharmacologic Prophylaxis ordered - Choose All That Apply Each Factor Represents 1 point: Obesity (BMI >25) Thrombosis Risk Factor Assessment Total Risk Factor Score: 1 Thrombosis Risk Factor Assessment Level: Low Risk Assessment and Plan Assessment: Shortness of breath and worsening cough due to acute COPD exacerbation with tracheobronchitis. No pneumonia on CTA chest. Acute on chronic hypoxic respiratory failure Suspected COVID-19 infection. Hypertension GERD Hyperlipidemia History of hemorrhoidectomy Previous history of smoking DVT prophylaxis with heparin subcu Plan: Patient was given a dose of ceftriaxone and azithromycin in the ER. Patient is still wheezing. Patient will be continued on IV steroids, breathing treatments and oxygen therapy as needed. Procalcitonin level is not elevated. We will continue to monitor closely and further recommendations based on clinical course. Pulmonary was consulted. Time with Patient: Greater than 30
[2020-01-21 20:37] LABS: Glucose,Whole Blood 162 mg/dL (75-99)
[2020-01-22] MEDS: methylPREDNISolone SOD SUCCI 125 MG/2 ML VIAL IV SCH ×4 (05:56→22:48)
[2020-01-22 06:51] LABS: Glucose,Whole Blood 134 mg/dL (75-99)
[2020-01-22] MEDS: INSULIN ASPART (NovoLOG) 100 UNIT/ML VIAL SQ SCH ×4 (07:22→20:49)
[2020-01-22] MEDS: PANTOPRAZOLE 40 MG TABLET PO SCH (07:55)
[2020-01-22] MEDS: AZITHROMYCIN 500 MG TAB PO SCH (07:56)
[2020-01-22] MEDS: HEPARIN SODIUM,PORCINE 5,000 UNIT/ML 1 ML VIAL SQ SCH ×3 (07:56→22:48)
[2020-01-22] MEDS: IPRATROPIUM-ALBUTEROL 3 ML NEB INHALATION SCH ×4 (08:20→20:52)
[2020-01-22] MEDS: SYMBICORT 160-4.5 MCG INHALER INHALATION SCH ×2 (08:20→20:52)
[2020-01-22 11:42] LABS: Glucose,Whole Blood 120 mg/dL (75-99)
--- NOTE | 2020-01-22 12:49 | P.PN ---
Subjective Progress Note Date: 01/22/20 Principal diagnosis: Shortness of breath cough and congestion This is a very pleasant 79-year-old female patient who follows with Dr. Roach as her primary care provider. She has a history of hypertension, hyperlipidemia, chronic obstructive pulmonary disease, oxygen dependent mainly at night on 2 L/m per nasal cannula. She is a prior history of chronic tobacco dependence. Recently she had been having issues with her COPD exacerbations and was treated in our office on 2 separate occasions with steroids and antibiotics without much improvement. She presented here to the emergency room yesterday with ongoing symptoms. CT angiogram revealed no evidence of pulmonary embolism. Lungs showed severe paracentral emphysema. Lungs were clear and free of infiltrates. No evidence of atelectasis. No pulmonary nodules or masses. No pleural effusions. She is seen today in consultation on the regular medical floor. She is awake and alert in no acute distress. She did present with a T- max of 101.9. Currently afebrile. Blood culture reveals no growth. Sputum culture pending. White count 4.8. Hemoglobin 12.5. Sodium 134. Potassium 4.5. Bicarb 19. Creatinine 0.91. Fonseca virus not detected. She been initiated on Symbicort, albuterol, IV Solu-Medrol. Empiric antibiotics in the form of ceftriaxone and azithromycin. On 01/22/2020 patient seen in follow-up on general medical floor. She is awake and alert, she sits in the chair, she has been walking to the bathroom with assistance and on oxygen, she does get quite dyspneic with exertion, and requires time to recover, but overall she states she is feeling better and breathing is significantly improved since admission. Lung sounds are diminished, no wheezing noted on today's exam, occasional cough. Her office records were reviewed, and outpatient PFT showed FEV1 of 1.46 L or 61% of predicted, total lung capacity of 122% compatible with hyperinflation, and DLCO of 27% of predicted. She is on 3 L of oxygen pulse ox of 91%, vitals are stable, no fever or chills, she remains on a combination of azithromycin and Rocephin, brain treatments and IV steroids. Her chest x-ray showed mild patchy density in the right lower lobe. CT chest showed no evidence of pulmonary embolism, severe paracentral emphysema, but the lungs were clear and free of infiltrates. Objective - Vital Signs Vital signs: Vital Signs Temp 98.3 F 01/22/20 07:00 Pulse 91 01/22/20 12:15 Resp 17 01/22/20 07:00 BP 146/71 01/22/20 07:00 Pulse Ox 91 L 01/22/20 07:00 Intake & Output 01/21/20 01/22/20 01/22/20 18:59 06:59 18:59 Other: Voiding Method Bedside Commode # Voids 1 1 - Exam GENERAL EXAM: Alert, very pleasant, 79-year-old white female, on 3 L of oxygen the pulse ox of 91-92%, dyspneic with any exertion but no apparent distress. HEAD: Normocephalic/atraumatic. EYES: Normal reaction of pupils, equal size. Conjunctiva pink, sclera white. NOSE: Clear with pink turbinates. THROAT: No erythema or exudates. NECK: No masses, no JVD, no thyroid enlargement, no adenopathy. CHEST: No chest wall deformity. Symmetrical expansion. LUNGS: Diminished air entry with no crackles, wheeze, rhonchi or dullness. CVS: Regular rate and rhythm, normal S1 and S2, no gallops, no murmurs, no rubs ABDOMEN: Soft, nontender. No hepatosplenomegaly, normal bowel sounds, no guarding or rigidity. EXTREMITIES: No clubbing, no edema, no cyanosis, 2+ pulses and upper and lower extremities. MUSCULOSKELETAL: Muscle strength and tone normal. SPINE: No scoliosis or deformity SKIN: No rashes CENTRAL NERVOUS SYSTEM: Alert and oriented -3. No focal deficits, tone is normal in all 4 extremities. PSYCHIATRIC: Alert and oriented -3. Appropriate affect. Intact judgment and insight. - Labs CBC & Chem 7: 01/21/20 06:38 01/21/20 06:38 Labs: Abnormal Lab Results - Last 24 Hours (Table) 01/21/20 01/21/20 01/22/20 Range/Units 17:07 20:36 06:50 POC Glucose (mg/dL) 145 H 162 H 134 H (75-99) mg/dL 01/22/20 Range/Units 11:41 POC Glucose (mg/dL) 120 H (75-99) mg/dL Microbiology - Last 24 Hours (Table) 01/20/20 10:30 Blood Culture - Preliminary Blood No Growth after 24 hours Assessment and Plan Plan: Assessment: #1. Acute exacerbation of chronic obstructive pulmonary disease, complicated by purulent tracheobronchitis, chest x-ray showed possibility of right lower lobe infiltrate however CTA chest did not show any pulmonary infiltrate, it was also negative for pulmonary embolism, and showed paracentral emphysema #2. Acute on chronic hypoxic respiratory failure secondary to the above, patient wears 2 L of oxygen at home on a regular basis #3. Advanced COPD, with a baseline FEV1 of 1.46 L or 61% of predicted, total lung capacity of 122%, and DLCO of 27% of predicted, stage II COPD #4. Former smoker, in remission for 1 year, carries [id number] smoking history #5. History of hypertension #6. Hypercholesterolemia #7. Vitamin D deficiency #8. History of cerebellar ataxia Plan: Continue current medical treatment, continue with nebulized bronchodilators, Symbicort, DuoNeb, continue IV steroids and antibiotics. Patient is being treated for acute exacerbation of COPD, no clear evidence of pneumonia seen on the CT chest. CT chest also revealed paracentral emphysema, we'll obtain alpha- 1 antitrypsin level. Patient is also bringing up to our attention that she had an episode of blood in the stool prior to coming in, we will obtain Hemoccult. We'll continue to follow. I performed a history & physical examination of the patient and discussed their management with my nurse practitioner, Jennifer Deng. I reviewed the nurse practitioner's note and agree with the documented findings and plan of care. Lung sounds are positive for diminished breath sounds The findings and the impression was discussed with the patient. I attest to the documentation by the nurse practitioner. Time with Patient: Less than 30
[2020-01-22 16:35] LABS: Glucose,Whole Blood 158 mg/dL (75-99)
[2020-01-22] MEDS ORDERED: MELATONIN 1 MG TAB PO PRN (17:58)
[2020-01-22 20:36] LABS: Glucose,Whole Blood 140 mg/dL (75-99)
[2020-01-22] MEDS ORDERED: MELATONIN 1 MG TAB PO SCH (21:00)
--- NOTE | 2020-01-23 00:36 | P.PN ---
Subjective Progress Note Date: 01/21/20 Principal diagnosis: Acute COPD exacerbation Patient is a 79-year-old female with a known history of COPD on oxygen at 2 L in the night, hypertension, GERD came to ER with the complaints of cough and worsening shortness of breath for the past 2 weeks. Patient was on 2 different antibiotics as an outpatient but without much improvement. Patient cough has been worsening. Sometimes productive with green-colored sputum.. Patient was seen by her doctor today and sent to ER due to concern for COVID-19 virus infection. Otherwise patient denied any complaints of chest pain. No nausea vomiting or diarrhea. No abdominal pain. No dizziness or lightheadedness. EKG showed sinus tachycardia Chest x-ray showed mild patchy density right lower lobe may reflect developing pneumonia. CT angiogram of the chest was done due to elevated d-dimer level to 1.3 CT angiogram showed no evidence of pulmonary embolism. Severe paraseptal emphysema. Lungs are free of infiltrate. No evidence for atelectasis. No pulmonary nodule or mass is detected. No pleural effusion. Laboratory data showed WC 9.6, hemoglobin 13.3, platelets 312 Absolute lymphocyte count1.4 Sodium 132, potassium 4.7, bicarb 19 BUN 12 and creatinine 0.98 Ferritin 782.9 LDH 530, CRP 168 Pro calcitonin 0.09 not elevated 01/21/2020 Patient is currently sitting in the chair comfortably at rest. Still having exertional dyspnea and wheezing and scattered rhonchi on examination. Currently being continued on steroids and breathing treatments. Antibiotics no cough ceftriaxone and azithromycin. Pulmonary is following. Patient has been afebrile. Currently saturating well on oxygen. Patient has been afebrile no other acute overnight issues. Current medications reviewed. Objective - Vital Signs Vital signs: Vital Signs Temp 98.5 F 01/21/20 19:18 Pulse 90 01/21/20 19:28 Resp 18 01/21/20 19:18 BP 146/75 01/21/20 19:18 Pulse Ox 94 L 01/21/20 19:18 Intake & Output 01/21/20 01/21/20 01/22/20 06:59 18:59 06:59 Other: Voiding Method Bedside Commode # Voids 2 1 - Exam PHYSICAL EXAMINATION: Patient is lying in the bed comfortably, no acute distress, awake alert and arti ented.. HEENT: Normocephalic. Neck is supple. Pupils reactive. Nostrils clear. Oral cavity is moist. Ears reveal no drainage. Neck reveals no JVD, carotid bruits, or thyromegaly. CHEST EXAMINATION: Trachea is central. Symmetrical expansion.Bilateral diffuse wheezing and diminished air entry.. CARDIAC: Normal S1, S2 with no gallops. No murmurs ABDOMEN: Soft. Bowel sounds normal. No organomegaly. No abdominal bruits. Extremities: reveal no edema. No clubbing or cyanosis Neurologically awake, alert, oriented x3 with well-coordinated movements. No focal deficits noted Skin: No rash or skin lesions. Psychiatric: Coperative. Nonsuicidal Musculoskeletal: No joint swelling or deformity. Normal range of motion. - Labs CBC & Chem 7: 01/21/20 06:38 01/21/20 06:38 Labs: Abnormal Lab Results - Last 24 Hours (Table) 01/21/20 01/21/20 01/21/20 Range/Units 06:38 06:38 06:53 Lymphocytes # 0.7 L (1.0-4.8) k/uL Sodium 134 L (137-145) mmol/L Carbon Dioxide 19 L (22-30) mmol/L BUN 18 H (7-17) mg/dL Glucose 148 H (74-99) mg/dL POC Glucose (mg/dL) 152 H (75-99) mg/dL 01/21/20 01/21/20 Range/Units 11:59 17:07 Lymphocytes # (1.0-4.8) k/uL Sodium (137-145) mmol/L Carbon Dioxide (22-30) mmol/L BUN (7-17) mg/dL Glucose (74-99) mg/dL POC Glucose (mg/dL) 141 H 145 H (75-99) mg/dL Microbiology - Last 24 Hours (Table) 01/20/20 10:30 Blood Culture - Preliminary Blood No Growth after 24 hours Assessment and Plan Assessment: Shortness of breath and worsening cough due to acute COPD exacerbation with tracheobronchitis. No pneumonia on CTA chest. Acute on chronic hypoxic respiratory failure Suspected COVID-19 infection. Hypertension GERD Hyperlipidemia History of hemorrhoidectomy Previous history of smoking DVT prophylaxis with heparin subcu Plan: Patient was given a dose of ceftriaxone and azithromycin in the ER. Patient is still wheezing. Patient will be continued on IV steroids, breathing treatments and oxygen therapy as needed. Procalcitonin level is not elevated. We will continue to monitor closely and further recommendations based on clinical course. Pulmonary was consulted. Time with Patient: Greater than 30
--- NOTE | 2020-01-23 00:38 | P.PN ---
Subjective Progress Note Date: 01/22/20 Principal diagnosis: Acute COPD exacerbation Patient is a 79-year-old female with a known history of COPD on oxygen at 2 L in the night, hypertension, GERD came to ER with the complaints of cough and worsening shortness of breath for the past 2 weeks. Patient was on 2 different antibiotics as an outpatient but without much improvement. Patient cough has been worsening. Sometimes productive with green-colored sputum.. Patient was seen by her doctor today and sent to ER due to concern for COVID-19 virus infection. Otherwise patient denied any complaints of chest pain. No nausea vomiting or diarrhea. No abdominal pain. No dizziness or lightheadedness. EKG showed sinus tachycardia Chest x-ray showed mild patchy density right lower lobe may reflect developing pneumonia. CT angiogram of the chest was done due to elevated d-dimer level to 1.3 CT angiogram showed no evidence of pulmonary embolism. Severe paraseptal emphysema. Lungs are free of infiltrate. No evidence for atelectasis. No pulmonary nodule or mass is detected. No pleural effusion. Laboratory data showed WC 9.6, hemoglobin 13.3, platelets 312 Absolute lymphocyte count1.4 Sodium 132, potassium 4.7, bicarb 19 BUN 12 and creatinine 0.98 Ferritin 782.9 LDH 530, CRP 168 Pro calcitonin 0.09 not elevated 01/21/2020 Patient is currently sitting in the chair comfortably at rest. Still having exertional dyspnea and wheezing and scattered rhonchi on examination. Currently being continued on steroids and breathing treatments. Antibiotics no cough ceftriaxone and azithromycin. Pulmonary is following. Patient has been afebrile. Currently saturating well on oxygen. Patient has been afebrile no other acute overnight issues. 01/22/2020 Patient is currently awake alert and oriented. Sitting in the chair comfortab ly. Able to ambulate to the bathroom but still having exertional dyspnea. Improved compared to yesterday. Currently on 3 L oxygen via nasal cannula. Patient still having diminished breath sounds and expiratory wheezing present. No fever no chills. Currently on antibiotics in the form of ceftriaxone and azithromycin. Continue IV steroids and breathing treatments. Pulmonary is following. Current medications reviewed. Objective - Vital Signs Vital signs: Vital Signs Temp 98.4 F 01/22/20 21:31 Pulse 101 H 01/22/20 21:31 Resp 20 01/22/20 21:31 BP 147/75 01/22/20 21:31 Pulse Ox 92 L 01/22/20 21:31 Intake & Output 01/22/20 01/22/20 01/23/20 06:59 18:59 06:59 Other: Voiding Method Bedside Commode Bedside Commode # Voids 1 2 - Exam PHYSICAL EXAMINATION: Patient is lying in the bed comfortably, no acute distress, awake alert and o riented.. HEENT: Normocephalic. Neck is supple. Pupils reactive. Nostrils clear. Oral cavity is moist. Ears reveal no drainage. Neck reveals no JVD, carotid bruits, or thyromegaly. CHEST EXAMINATION: Trachea is central. Symmetrical expansion.Bilateral exp wheezing and diminished air entry.. CARDIAC: Normal S1, S2 with no gallops. No murmurs ABDOMEN: Soft. Bowel sounds normal. No organomegaly. No abdominal bruits. Extremities: reveal no edema. No clubbing or cyanosis Neurologically awake, alert, oriented x3 with well-coordinated movements. No focal deficits noted Skin: No rash or skin lesions. Psychiatric: Coperative. Nonsuicidal Musculoskeletal: No joint swelling or deformity. Normal range of motion. - Labs CBC & Chem 7: 01/21/20 06:38 01/21/20 06:38 Labs: Abnormal Lab Results - Last 24 Hours (Table) 01/22/20 01/22/20 01/22/20 Range/Units 06:50 11:41 16:34 POC Glucose (mg/dL) 134 H 120 H 158 H (75-99) mg/dL 01/22/20 Range/Units 20:34 POC Glucose (mg/dL) 140 H (75-99) mg/dL Microbiology - Last 24 Hours (Table) 01/20/20 10:30 Blood Culture - Preliminary Blood No Growth after 48 hours Assessment and Plan Assessment: Shortness of breath and worsening cough due to acute COPD exacerbation with tracheobronchitis. No pneumonia on CTA chest. Acute on chronic hypoxic respiratory failure Suspected COVID-19 infection. Hypertension GERD Hyperlipidemia History of hemorrhoidectomy Previous history of smoking DVT prophylaxis with heparin subcu Plan: Patient was given a dose of ceftriaxone and azithromycin in the ER. Patient is still wheezing. Patient will be continued on IV steroids, breathing treatments and oxygen therapy as needed. Procalcitonin level is not elevated. We will continue to monitor closely and further recommendations based on clinical co urse. Pulmonary was consulted. Time with Patient: Greater than 30
[2020-01-23] MEDS: methylPREDNISolone SOD SUCCI 125 MG/2 ML VIAL IV SCH ×2 (05:39→11:49)
[2020-01-23 07:00] LABS: Glucose,Whole Blood 141 mg/dL (75-99)
[2020-01-23] MEDS: PANTOPRAZOLE 40 MG TABLET PO SCH (07:27)
[2020-01-23] MEDS: HEPARIN SODIUM,PORCINE 5,000 UNIT/ML 1 ML VIAL SQ SCH ×2 (07:27→16:39)
[2020-01-23] MEDS: AZITHROMYCIN 500 MG TAB PO SCH (07:27)
[2020-01-23] MEDS: INSULIN ASPART (NovoLOG) 100 UNIT/ML VIAL SQ SCH ×3 (07:27→16:50)
[2020-01-23 07:42] VITALS: RESP 18; TEMP 98
[2020-01-23] MEDS: SYMBICORT 160-4.5 MCG INHALER INHALATION SCH (07:51)
[2020-01-23] MEDS: IPRATROPIUM-ALBUTEROL 3 ML NEB INHALATION SCH ×3 (07:51→15:35)
[2020-01-23 11:30] LABS: Glucose,Whole Blood 136 mg/dL (75-99)
--- NOTE | 2020-01-23 11:45 | P.PN ---
Subjective Progress Note Date: 01/23/20 Principal diagnosis: Shortness of breath cough and congestion This is a very pleasant 79-year-old female patient who follows with Dr. Roach as her primary care provider. She has a history of hypertension, hyperlipidemia, chronic obstructive pulmonary disease, oxygen dependent mainly at night on 2 L/m per nasal cannula. She is a prior history of chronic tobacco dependence. Recently she had been having issues with her COPD exacerbations and was treated in our office on 2 separate occasions with steroids and antibiotics without much improvement. She presented here to the emergency room yesterday with ongoing symptoms. CT angiogram revealed no evidence of pulmonary embolism. Lungs showed severe paracentral emphysema. Lungs were clear and free of infiltrates. No evidence of atelectasis. No pulmonary nodules or masses. No pleural effusions. She is seen today in consultation on the regular medical floor. She is awake and alert in no acute distress. She did present with a T- max of 101.9. Currently afebrile. Blood culture reveals no growth. Sputum culture pending. White count 4.8. Hemoglobin 12.5. Sodium 134. Potassium 4.5. Bicarb 19. Creatinine 0.91. Fonseca virus not detected. She been initiated on Symbicort, albuterol, IV Solu-Medrol. Empiric antibiotics in the form of ceftriaxone and azithromycin. On 01/22/2020 patient seen in follow-up on general medical floor. She is awake and alert, she sits in the chair, she has been walking to the bathroom with assistance and on oxygen, she does get quite dyspneic with exertion, and requires time to recover, but overall she states she is feeling better and breathing is significantly improved since admission. Lung sounds are diminished, no wheezing noted on today's exam, occasional cough. Her office records were reviewed, and outpatient PFT showed FEV1 of 1.46 L or 61% of predicted, total lung capacity of 122% compatible with hyperinflation, and DLCO of 27% of predicted. She is on 3 L of oxygen pulse ox of 91%, vitals are stable, no fever or chills, she remains on a combination of azithromycin and Rocephin, brain treatments and IV steroids. Her chest x-ray showed mild patchy density in the right lower lobe. CT chest showed no evidence of pulmonary embolism, severe paracentral emphysema, but the lungs were clear and free of infiltrates. On 01/23/2020 patient seen in follow-up on general medical floor. She is feeling much better today, still has exertional dyspnea, but breathing much easier, she is on 2 L of oxygen her pulse ox is 93%, she is afebrile, no rhonchi, no wheezing, sounds much better on today's exam. She's been treated with the combination of antibiotics, breathing treatments and steroids, improved, she is requesting to go home today. Alpha-1 antitrypsin has been sent and is pending at this time, we'll follow-up on that in the office, from pulmonary perspective patient stable for discharge home today. Sputum culture showing rare budding yeast, blood culture negative Objective - Vital Signs Vital signs: Vital Signs Temp 98.0 F 01/23/20 07:00 Pulse 82 01/23/20 11:28 Resp 18 01/23/20 07:34 BP 154/74 01/23/20 07:00 Pulse Ox 93 L 01/23/20 07:00 Intake & Output 01/22/20 01/23/20 01/23/20 18:59 06:59 18:59 Intake Total 100 Output Total 400 Balance -300 Intake: Oral 100 Output: Urine 400 Other: Voiding Method Bedside Commode Toilet Bedside Commode # Voids 2 1 - Exam GENERAL EXAM: Alert, very pleasant, 79-year-old white female, on 2 L of oxygen the pulse ox of 93%, dyspneic with any exertion but no apparent distress. HEAD: Normocephalic/atraumatic. EYES: Normal reaction of pupils, equal size. Conjunctiva pink, sclera white. NOSE: Clear with pink turbinates. THROAT: No erythema or exudates. NECK: No masses, no JVD, no thyroid enlargement, no adenopathy. CHEST: No chest wall deformity. Symmetrical expansion. LUNGS: Diminished air entry with no crackles, wheeze, rhonchi or dullness. CVS: Regular rate and rhythm, normal S1 and S2, no gallops, no murmurs, no rubs ABDOMEN: Soft, nontender. No hepatosplenomegaly, normal bowel sounds, no guarding or rigidity. EXTREMITIES: No clubbing, no edema, no cyanosis, 2+ pulses and upper and lower extremities. MUSCULOSKELETAL: Muscle strength and tone normal. SPINE: No scoliosis or deformity SKIN: No rashes CENTRAL NERVOUS SYSTEM: Alert and oriented -3. No focal deficits, tone is normal in all 4 extremities. PSYCHIATRIC: Alert and oriented -3. Appropriate affect. Intact judgment and insight. - Labs CBC & Chem 7: 01/21/20 06:38 01/21/20 06:38 Labs: Abnormal Lab Results - Last 24 Hours (Table) 01/22/20 01/22/20 01/22/20 Range/Units 10:15 11:41 16:34 POC Glucose (mg/dL) 120 H 158 H (75-99) mg/dL [id number] 266.0 H (99.0-242.0) mg/dL 01/22/20 01/23/20 01/23/20 Range/Units 20:34 06:59 11:28 POC Glucose (mg/dL) 140 H 141 H 136 H (75-99) mg/dL [id number] (99.0-242.0) mg/dL Microbiology - Last 24 Hours (Table) 01/22/20 15:35 Gram Stain - Preliminary Sputum Sputum Culture - Preliminary 01/20/20 10:30 Blood Culture - Preliminary Blood No Growth after 48 hours Assessment and Plan Plan: Assessment: #1. Acute exacerbation of chronic obstructive pulmonary disease, complicated by purulent tracheobronchitis, chest x-ray showed possibility of right lower lobe infiltrate however CTA chest did not show any pulmonary infiltrate, it was also negative for pulmonary embolism, and showed paracentral emphysema #2. Acute on chronic hypoxic respiratory failure secondary to the above, patient wears 2 L of oxygen at home on a regular basis #3. Advanced COPD, with a baseline FEV1 of 1.46 L or 61% of predicted, total lung capacity of 122%, and DLCO of 27% of predicted, stage II COPD #4. Former smoker, in remission for 1 year, carries [id number] smoking history #5. History of hypertension #6. Hypercholesterolemia #7. Vitamin D deficiency #8. History of cerebellar ataxia Plan: Patient is doing well, no acute events overnight she is breathing easier, tolerating ambulation in the room, vital signs are stable. No fever or chills, from pulmonary perspective she stable for discharge home today on the course of oral antibiotics prednisone taper, and she can resume her maintenance DuoNeb, and Symbicort. She will need follow-up with Dr. Carpio in the office early next week I performed a history & physical examination of the patient and discussed their management with my nurse practitioner, Jennifer Deng. I reviewed the nurse practitioner's note and agree with the documented findings and plan of care. Lung sounds are positive for diminished breath sounds The findings and the impression was discussed with the patient. I attest to the documentation by the nurse practitioner. Time with Patient: Less than 30
[2020-01-23] MEDS ORDERED: predniSONE 50 MG TAB PO STA (12:42)
[2020-01-23 15:35] VITALS: BP 165/92
[2020-01-23 15:37] VITALS: PULSE 84
[2020-01-23 16:38] LABS: Glucose,Whole Blood 148 mg/dL (75-99)
--- NOTE | 2020-01-24 13:07 | CDI ---
Documentation Clarification Form Date: 01/24/2020 12:56:40 PM From: Sue Youssef RN, CCDS Admit Date: 01/20/2020 12:46:00 PM Patient Name: Betty Aaron Visit Number: [id number] Discharge Date: 01/23/2020 05:32:00 PM ATTENTION: The Clinical Documentation Specialists (CDI) and [facility] Coding Staff appreciate your assistance in clarifying documentation. Please respond to the clarification below the line at the bottom and electronically sign. The CDI & [facility] Coding staff will review the response and follow-up if needed. Please note: Queries are made part of the Legal Health Record. If you have any questions, please contact the author of this message via ITS. Dr. Tolu Nowak Suspected COVID-19 is documented in the medical record as found in H&P and attending progress notes and requires definitive diagnosis. HX COPD on 2L Home O2 OTC with a worsening cough and SOB x 2 weeks NON [employer] Clinical Indicators 01/19 H&P - 01/21 Attending Progress Notes: "Acute on chronic hypoxic respiratory failure Suspected COVID-19 infection." 01/20 Pulmonary consult - 01/22 Progress notes: " 01/19 Coronavirus (PCR): not detected Treatment Updrafts Zithromax 500 mg IVPB x 1 followed by 500 mg PO QD Rocephin 1 gm IVPB IV Solumedrol 60 mg IVP Q 6 hrs Please provide additional documentation in the patients medical record in the next progress note and/or discharge summary supportive of your documented diagnosis of COVID-19. COVID-19 was evident/ruled in COVID-19 was ruled out and amended documentation provided in the medical record Other explanation of clinical findings (please specify): COVID-19 was ruled out and amended documentation provided in the medical record MTDD
== END 2020-01-23 17:32 | disposition home or self-care (01) | DRG 190 ==
LOC: EC 10:03 → 4SSUR 12:46
PROVIDERS: ADMIT Internal Medicine; ATTEND Internal Medicine
DX: J44.1 Chronic obstructive pulmonary disease with (acute) exacerbation (principal); J96.21 Acute and chronic respiratory failure with hypoxia; E87.1 Hypo-osmolality and hyponatremia; E55.9 Vitamin D deficiency, unspecified; E78.00 Pure hypercholesterolemia, unspecified; E78.5 Hyperlipidemia, unspecified; I10 Essential (primary) hypertension; K21.9 Gastro-esophageal reflux disease without esophagitis; Z20.828 Contact with and (suspected) exposure to other viral communicable diseases; Z79.51 Long term (current) use of inhaled steroids; Z79.82 Long term (current) use of aspirin; Z79.899 Other long term (current) drug therapy; Z88.5 Allergy status to narcotic agent; Z88.2 Allergy status to sulfonamides; Z87.891 Personal history of nicotine dependence; Z90.710 Acquired absence of both cervix and uterus; Z91.81 History of falling; Z90.49 Acquired absence of other specified parts of digestive tract; Z80.1 Family history of malignant neoplasm of trachea, bronchus and lung
CPT/HCPCS: 36415; 71045; 71275; 80048; 80053; 82103; 82728; 83605; 83615; 83735; 84145; 85025; 85379; 85610; 85730; 86140; 87040; 87070; 87205; 87635; 93005; 94640; 96365; 96375; 99285